=== PATIENT | male | born 1985 | race Caucasian/White ===

== ENCOUNTER 2021-01-02 15:54 | Emergency (ER) | payer MEDICAID ==
[~2021-01-02] VITALS: Ht 175.3 cm; Wt 78.0 kg
[2021-01-02] MEDS ORDERED: MAGNESIUM/ALUMINUM HYDROXIDE/SIMETHICONE 30ML UDC PO STA (16:10)
[2021-01-02] MEDS ORDERED: FAMOTIDINE 20MG TABLET PO ONE (16:15)
[2021-01-02 18:30] LABS: BASOPHILS % 0.6 % (0.0-2.0); HEMATOCRIT. 47.9 % (42.0-52.0); HEMOGLOBIN. 16.8 g/dL (14.0-18.0); LYMPHOCYTES % 24.3 % (20.0-50.0); MEAN CORPUSCULAR HEMOGLOBIN 32.9 pg (28.0-32.0); MEAN PLATELET VOLUME 9.2 fl (7.4-10.4); MONOCYTES % 9.7 % (2.0-8.0); NEUTROPHILS % 64.4 % (40.0-76.0); PLATELET 246 x1000/uL (130-400); RED CELL DISTRIBUTION WIDTH 13.1 % (11.6-14.6)
[2021-01-02 18:35] LABS: CHLORIDE 102 mEq/L (98-107)
[2021-01-02 19:30] VITALS: BP 106/74
[2021-01-02] MEDS ORDERED: PROT40 MT (19:36)
== END 2021-01-02 20:00 | disposition home or self-care (01) ==
LOC: ER 15:54
DX: R20.8 Other disturbances of skin sensation (principal); E78.00 Pure hypercholesterolemia, unspecified; I10 Essential (primary) hypertension
CPT/HCPCS: 36415; 71045; 80053; 84484; 85025; 93005; 99285